=== PATIENT | female | born 1935 | race Caucasian/White ===

== ENCOUNTER 2019-09-11 07:42 | Day surgery (SDC) | payer MEDICARE, OTHER, SELFPAY ==
[2019-09-07 10:59] VITALS: BMI 28.8
--- NOTE | 2019-09-11 08:01 | ANES.PREANE2 ---
Pre-Anesthetic Assessment Pre-Anesthetic Assessment: Height/Weight: Height 1.65 m Weight 78.471 kg Proposed Procedure: Operation Date: 09/11/19 09:00 Proposed Procedures p EGD [id number] D50.9(Not Applicable) - Sourav Thomas MD s Colonoscopy(Not Applicable) - Sourav Thomas MD Social: Social History: No alcohol and No tobacco Exam: Pre-Anes Outpt Exam: alert, oriented x 3, clear to auscultation bilaterally and regular rate & rhythm Airway: Submandibular: WNL Cervical ROM: Other (very limited) MP: 1 Dentition: Full (dentures) History/ROS: No significant history except as noted Pulmonary: Pulmonary: GARRETT CV/HEM: CV/HEM: Arrythmia (PSVT) and HTN : : Chronic renal Insufficiency Hepatic: Hepatic: None reported GI: GI: GERD Metabolic: Metabolic: DM and Hyperlipidemia Musc/skel: Musc/skel: OA/DJD and Weakness (gen) Neuropsych: Neuropsych: None reported Anesthetic Plan: ASA status: 3 Anesthesia: Anesthesia Evaluation and MAC Risk of > 500 ml blood loss (7ml/kg in children): No PFSH Anesthesia PFSH: Medical History Anemia CKD (chronic kidney disease) Diabetes HTN (hypertension) Hyperlipidemia Iron deficiency anemia Paroxysmal supraventricular tachycardia Reflux esophagitis Data Anesthesia Cardiac Studies: No Data to Display
[2019-09-11 08:26] VITALS: BP 169/81; PULSE 61; RESP 18; TEMP 36.6; O2SAT 96
[2019-09-11] MEDS: sodium chloride 0.9% 1,000 ML 30 ML IV (08:29)
[2019-09-11 08:31] LABS: Glucose Point of Care 110 mg/dL (70-110)
--- NOTE | 2019-09-11 09:09 | PM.OPSURHP ---
Providers/Chief Complaint Primary Care Provider: Jose Antonio Benjamin MD Chief Complaint: colon and egd History of Present Illness Macie Walton is a 84 year old female with fe def anemia. Medications/Allergies Home Medications Medication Instructions Recorded Confirmed Last Taken Type amlodipine 5 mg tablet 5 mg PO DAILY 08/30/19 09/11/19 09/11/19 06:15 History digoxin 125 mcg (0.125 mg) tablet 125 mcg PO DAILY 08/30/19 09/11/19 09/11/19 06:15 History metformin 500 mg tablet 500 mg PO BID 08/30/19 09/11/19 09/10/19 17:00 History metoprolol tartrate 50 mg tablet 50 mg PO BID 08/30/19 09/11/19 09/11/19 06:15 History rivaroxaban 20 mg tablet 20 mg PO DAILY 08/30/19 09/11/19 09/05/19 History simvastatin 40 mg tablet 40 mg PO DAILY 08/30/19 09/11/19 09/10/19 History torsemide 20 mg tablet 20 mg PO DAILY 08/30/19 09/11/19 09/10/19 History aspirin 325 mg PO DAILY 09/11/19 09/11/19 09/09/19 History hydrocodone-acetaminophen 1 tab PO QID PRN 09/11/19 09/11/19 09/10/19 History Allergies Allergy/AdvReac Type Severity Reaction Status Date / Time fenoprofen Allergy Unknown Verified 08/30/19 11:11 tramadol Allergy Unknown Verified 08/30/19 11:11 PFSH PFSH: Medical History Anemia CKD (chronic kidney disease) Diabetes HTN (hypertension) Hyperlipidemia Iron deficiency anemia Paroxysmal supraventricular tachycardia Reflux esophagitis Vital Signs Vitals Signs: Last Vital Signs Temp 98 F 09/11/19 08:26 Pulse 61 09/11/19 08:26 Resp 18 09/11/19 08:26 BP 169/81 09/11/19 08:26 Pulse Ox 96 09/11/19 08:26 Physical Exam Const: COMMON NORMALS: no acute distress, alert and well nourished GENERAL APPEARANCE: cooperative, well kempt, well developed and well hydrated; does not appear older than stated age ORIENTATION/CONSCIOUSNESS: Yes oriented to person, Yes oriented to place and Yes oriented to time HENMT: COMMON NORMALS: normocephalic, external ears normal and TM's normal bilaterally HEAD & SCALP: normocephalic EXTERNAL EAR: Yes external ears normal TYMPANIC MEMBRANE: TM's normal bilaterally MOUTH: Normal oral and palatal mucosa present Eye: COMMON NORMALS: Equal, round and reactive pupils present GENERAL EYE: appearance normal, both eyes and all related structures and normal light reflex VISUAL ACUITY: Yes acuity normal PUPIL: Yes Equal, round and reactive pupils present DIRECT OPHTHALMOSCOPY: Yes normal light reflex Neck/C-Spine: COMMON NORMALS: full ROM, no lymphadenopathy, supple, no JVD, Thyroid normal and No carotid bruits GENERAL: Yes trachea midline THYROID: Thyroid normal, no masses and nontender Lymph: LYMPHATIC: no lymphadenopathy noted Chest: CHEST: Yes Symmetrical chest wall rise Resp: COMMON NORMALS: normal respiratory effort and clear to auscultation bilaterally AUSCULTATION: clear to auscultation bilaterally Cardio: COMMON NORMALS: no JVD, regular rhythm and No murmurs present (Cardio) PALPATION: normal PMI RHYTHM: regular rhythm GI: COMMON NORMALS: non-tender, no masses and no bruits INSPECTION: Yes normal to inspection, No scar and No striae AUSCULTATION: Yes normoactive bowel sounds PALPATION: No Guarding due to palpation present (GI), No Rigid due to palpation, No Hernia present and No Rebound tenderness present PERCUSSION: normal to percussion RECTAL EXAM: deferred : EXTERNAL FEMALE EXAM: No Hernia present Back/Pelvis: COMMON NORMALS: thoracic and lumbar spine normal to inspection GENERAL BACK: No tenderness Extremity: COMMON NORMALS: normal to inspection, no clubbing, cyanosis or edema and no calf tenderness Neuro: SENSORIUM/ORIENTATION: Yes alert, Yes oriented to person, Yes oriented to place and Yes oriented to time CRANIAL NERVES: Yes CN normal except as noted MOTOR EXAM: 5/5 motor strength present throughout Psych: COMMON NORMALS: mental status grossly normal APPEARANCE: Yes grossly normal and Yes well kempt ATTITUDE: Yes calm Skin: COMMON NORMALS: turgor normal NARRATIVE SKIN EXAM: Normal coloration of skin GENERAL SKIN EXAM: turgor normal and no scars LESIONS: no lesions TRAUMA: no lacerations or abrasions A&P Assessment and plan (1) Anemia: Status: Acute Coding Level of Care Code Acute Recording Studio Setup Worker for g Fwd Exam Comprehensive Diagnoses Anemia D64.9
--- NOTE | 2019-09-11 10:34 | FL_ITS ---
WS: [id number] BARIUM ENEMA SINGLE CONTRAST. HISTORY: Suspected left colon stricture on colonoscopy. COMPARISON: None available. FLUOROSCOPY TIME: 1.0 minutes. Geoscientist radiograph is positive for a large amount of air and fecal material still within the colon. Arpan l attempt barium enema examination. Severe osteopenia. Via gravity barium is instilled into the distal colon. There is marked tortuosity and overlapping loo ps of distal colon and sigmoid. There is wall thickening and innumerable diverticula. No high-grade s tricture demonstrated. As the barium reached the splenic flexure patient was unable to maintain the r ectal tube. Despite attempting barium enema this is an unsuccessful examination due to patient's rect al tone and a large amount of retained air and fecal material still within the colon. FL/FL barium enema [id number] IMPRESSION: 1. Unsuccessful barium enema examination due to combination of poor rectal ton e and retained fecal material and air in the colon. 2. Marked tortuosity of the distal colon with overlapping loops and innumerabl e diverticula. No high-grade stricture noted in the distal colon with several l oops are overlapping which could obscure an area of stricture.
[2019-09-11 10:35] VITALS: BP 124/62; PULSE 56; RESP 18; TEMP 36.3; O2SAT 98
--- NOTE | 2019-09-11 10:55 | ANE.PACU2 ---
Inpatient post-anesthesia follow up: Airway intact: Yes Vital signs: Temperature 97.4 F Pulse Rate 56 Respiratory Rate 18 Blood Pressure 124/62 Pulse Oximetry 98 Oxygen Delivery Me thod Nasal Cannula Oxygen Flow Rate 3 Fraction of Inspir ed Oxygen Hydration adequate: Yes Nausea and vomiting: Yes Pain level: 1 Mental status: Baseline
[2019-09-11 10:56] VITALS: BP 146/79; PULSE 62; RESP 18; O2SAT 97
--- NOTE | 2019-09-11 11:07 | SUR.PHASEII ---
1106 Pt ready for discharge from Phase II. Dr. Thomas ordered a Barium Enema prior to discharge. Barium enema scheduled for 1 pm. Pt to wait in OPS until time for exam.
== END 2019-09-11 11:15 | disposition home or self-care (01) ==
PROVIDERS: PCP Family Medicine; Visit Provider Internal Medicine
PROC: 0DJ08ZZ Inspection of Upper Intestinal Tract, Via Natural or Artificial Opening Endoscopic (ICD-10-PCS; CPT 43235; principal; 2019-09-11 09:00)
PROC: 0DJD8ZZ Inspection of Lower Intestinal Tract, Via Natural or Artificial Opening Endoscopic (ICD-10-PCS; CPT 45378; 2019-09-11 09:00)
DX: D50.9 Iron deficiency anemia, unspecified (principal); Z79.82 Long term (current) use of aspirin; Z79.891 Long term (current) use of opiate analgesic; E11.22 Type 2 diabetes mellitus with diabetic chronic kidney disease; I12.9 Hypertensive chronic kidney disease with stage 1 through stage 4 chronic kidney disease, or unspecified chronic kidney disease; N18.9 Chronic kidney disease, unspecified; K21.0 Gastro-esophageal reflux disease with esophagitis; E78.5 Hyperlipidemia, unspecified; M19.90 Unspecified osteoarthritis, unspecified site; K56.699 Other intestinal obstruction unspecified as to partial versus complete obstruction
CPT/HCPCS: 12345; 36416; 43235; 45330; 74270; 82962; J2704; J3490; J7030